=== PATIENT | female | born 1960 | race Caucasian/White ===

== ENCOUNTER 2019-05-08 06:27 | Day surgery (SDC) | payer BC ==
[2019-05-06 16:39] LABS: CLARITY,URINE CLEAR (Clear); COLOR,URINE STRAW (Yellow); GLUCOSE, URINE NEGATIVE (Neg); KETONES,URINE NEGATIVE (Neg); LEUKOCYTE ESTERASE ,URINE NEGATIVE (Neg); NITRITES, URINE NEGATIVE (Neg); OCCULT BLOOD,URINE NEGATIVE (Neg); PROTEIN,URINE NEGATIVE (Neg); UROBILINOGEN,URINE 0.2 E.U/dL (0.2-1.0)
[2019-05-06 16:41] LABS: UA COLLECTION TYPE CLN CATCH MIDSTREAM
[2019-05-06 16:48] LABS: BASOPHILS % (AUTO) 0.4 % (0-1); EOSINOPHILS # (AUTO) 0.4 X10'3 (0-0.9); EOSINOPHILS % (AUTO) 5.9 % (0-6); LYMPHOCYTES # (AUTO) 1.4 X10'3 (1.1-4.8); LYMPHOCYTES % (AUTO) 19.7 % (21-51); MEAN CORPUSCULAR HEMOGLOBIN 30.8 PG (27.0-31.0); MEAN CORPUSCULAR HGB CONC 34.5 g/dL (33.0-36.5); MEAN CORPUSCULAR VOLUME 89.2 FL (78-98); MONOCYTES # (AUTO) 0.4 X10'3 (0-0.9); MONOCYTES % (AUTO) 5.2 % (2-12); NEUTROPHILS # (AUTO) 4.7 X10'3 (1.8-7.7); NEUTROPHILS % (AUTO) 68.8 % (42-75); PRE OP HEMATOCRIT 41.5 % (35.0-45.0); PRE OP HEMOGLOBIN 14.3 g/dL (12.0-16.0); PRE OP PLATELET COUNT 246 X10'3 (140-440); RED BLOOD COUNT 4.65 X10'6 (4.20-5.60)
[2019-05-06 17:05] LABS: ALBUMIN 3.5 G/DL (3.4-5.0); ALBUMIN/GLOBULIN RATIO 1.1 (1.1-1.5); ALKALINE PHOSPHATASE 99 IU/L (46-116); BLOOD UREA NITROGEN 11 MG/DL (7-18); BUN/CREATININE RATIO 10.7 (6.6-38.0); CHLORIDE 107 MMOL/L (99-107); CREATININE 1.03 MG/DL (0.40-0.90); PRE OP ALT 53 U/L (30-65); PRE OP ANION GAP 6 (8-16); PRE OP AST 33 U/L (10-37); PRE OP BILIRUB, TOTAL 0.4 MG/DL (0.0-1.0); PRE OP GLUCOSE 101 MG/DL (70-104); PRE OP POTASSIUM 3.8 MMOL/L (3.4-5.1); PRE OP SODIUM 143 MMOL/L (135-145); TOTAL CARBON DIOXIDE 30.1 MMOL/L (24-32); TOTAL PROTEIN 6.6 G/DL (6.4-8.2); eGFR 55 ML/MIN
[2019-05-08] VITALS (10 sets, daily range): BP systolic 133–154; BP diastolic 76–86
[~2019-05-08] VITALS: Ht 157.5 cm; Wt 80.7 kg
[~2019-05-08 06:27] MED LIST: CHOL100046 PO; LEVO50TA PO; OMEP20CA11 PO; cefazolin/dext.iso 2gm/100ml 100 ML IV ONE; famotidine 20mg tablet PO ONE; ringers solution, lacted 1,000 ML IV SCH
[2019-05-08] MEDS ORDERED: BUPIVAcaine/PF 2.5 mg/ml (0.25%) 30ml vial ONE (07:32)
[2019-05-08] MEDS ORDERED: sevoflurane 250ml liquid IH ONE (10:32)
[2019-05-08] MEDS ORDERED: fentaNYL /PF 50mcg/ml 5ml ampule ONE (10:40)
[2019-05-08] MEDS ORDERED: midazolam 2 mg/2 ml injection ONE (10:40)
[2019-05-08] MEDS ORDERED: propofol inj 20 ML IV ONE (10:42)
[2019-05-08] MEDS ORDERED: ringers solution, lacted 1,000 ML IV SCH (11:19)
[2019-05-08] MEDS ORDERED: meperidine/PF 25mg/ml syringe IV PRN ×3 (11:20)
[2019-05-08] MEDS ORDERED: morphine 4 MG/ML inj SYRINge IV PRN ×2 (11:20)
[2019-05-08] MEDS ORDERED: ondansetron/PF 4mg/2ml inj IV PRN (11:20)
[2019-05-08] MEDS ORDERED: proCHLORperazine 10 MG/2 ml inj IV PRN (11:20)
[2019-05-08] MEDS ORDERED: ondansetron/PF 4mg/2ml inj ONE (11:32)
[2019-05-08] MEDS ORDERED: dexamethasone sod phosphate 4mg/ml inj. ONE (11:33)
[2019-05-08] MEDS ORDERED: rocuronium 10mg/ml inj IV ONE (11:33)
[2019-05-08] MEDS ORDERED: ePHEDrine 50MG/ML INJ. ONE (11:33)
[2019-05-08] MEDS ORDERED: glycopyrrolate 0.2mg/ml inj ONE (11:34)
[2019-05-08] MEDS ORDERED: neostigmine methylsulfate 1 MG/ML 10ml vial ONE (11:34)
--- NOTE | 2019-05-08 11:55 | NUR ---
Received from OR via BED , accompanied by Anesthesiologist DR MORTENSEN and report given by Anesthesiolgist. PATIENT WAKING UP, DENIES, V/S WNL, NEUROVASCULAR CHECKS INTACT, 20G PIV RUE, SCD ON, LAP SIGHTS OF ABDOMEN CDI.
--- NOTE | 2019-05-08 13:15 | NUR ---
PATIENT A&OX4, DENIES PAIN, V/S WNL, NEUROVASCULAR CHECKS INTACT, 20G PIV LUE D/C WITH NO COMPLICATIONS OBSERVED, SCD OFF, BANDAIDS TO LAP SIGHTS OF ABDOMEN CDI. . I HAVE REVIEWED D/C INSTRUCTIONS WITH PATIENT AND FAMILY AND THEY HAVE VERBALIZED UNDERSTANDING. PATIENT D/C HOME WITH FAMILY TO TRANSPORT AND ALL BELONGINGS..
== END 2019-05-08 13:15 | disposition home or self-care (01) ==
LOC: PAS 06:27
PROVIDERS: ATTEND Surgery
DX: K80.10 Calculus of gallbladder with chronic cholecystitis without obstruction (principal); K76.0 Fatty (change of) liver, not elsewhere classified; K75.9 Inflammatory liver disease, unspecified; K21.9 Gastro-esophageal reflux disease without esophagitis; E03.9 Hypothyroidism, unspecified; G47.30 Sleep apnea, unspecified; N18.3 Chronic kidney disease, stage 3 (moderate); J45.909 Unspecified asthma, uncomplicated; Z88.2 Allergy status to sulfonamides; Z91.040 Latex allergy status; Z98.890 Other specified postprocedural states; Z72.89 Other problems related to lifestyle; Z79.899 Other long term (current) drug therapy
CPT/HCPCS: 36415; 47379; 47562; 80053; 81003; 82948; 85025; 93005; J1100; J2250; J2405; J2704; J2710; J3010; J3490; J7120; A4215; A4618; A7000